=== PATIENT | male | born 1980 | race Two or more races ===

== ENCOUNTER 2025-06-30 15:22 | Emergency (ER) | payer OTHER ==
[~2025-06-30] VITALS: Ht 180.3 cm; Wt 204.1 kg
[2025-06-30] MEDS ORDERED: METFORMIN HCL1000 M2 PO (16:13)
[2025-06-30] MEDS ORDERED: CARVEDILOL ER40 MG PO (16:13)
[2025-06-30] MEDS ORDERED: LOSARTAN POTAS100 MG PO (16:14)
[2025-06-30] MEDS ORDERED: KETOROLAC TROMETHAMINE 60 MG VIAL IM ONE (17:15)
[2025-06-30 18:31] LABS: ALT/SGPT 39.0 U/L (12-78); AST/SGOT 58.0 U/L (15-37); BILIRUBIN TOTAL 2.15 mg/dL (0.3-1.2); BUN CREA RATIO 9.0 (7.0-25.0); CREATININE SERUM 1.04 mg/dL (0.70-1.30); GFR 77.23; GLOBULINA 4.4 G/DL (2.4-3.5); OSMOLALITY SERUM 290.0 MOSM/KG (275-295)
[2025-06-30 18:40] LABS: GLUCOSE FASTING 318.0 mg/dL (65-100)
[2025-06-30 18:59] LABS: BASO % 0.7 % (0.1-1.2); EOS # 0.17 (0.04-0.54); EOS % 3.9 % (0.7-7.0); LYMPH # 1.20 (1.18-3.74); LYMPH % 27.6 % (19.3-53.1); MEAN PLATELET VOLUME 9.80 fl (9.4-12.4); MONO # 0.47 (0.24-0.82); MONO % 10.8 % (4.7-12.5); NEUT # 2.46 (1.56-6.13); NEUT % 56.8 % (34.0-71.1); RED CELL DISTRIBUTION WIDTH 12.9 % (11.6-14.4)
[2025-06-30] MEDS ORDERED: INSULIN REGULAR, HUMAN 1,000 UNIT/10 ML UNITS SUBCUTANEO ONE (20:30)
== END 2025-06-30 22:50 | disposition home or self-care (01) ==
LOC: ER 16:06
PROVIDERS: General Practice
DX: M54.89 Other dorsalgia (principal); M25.561 Pain in right knee; M62.830 Muscle spasm of back; E11.9 Type 2 diabetes mellitus without complications; Z79.84 Long term (current) use of oral hypoglycemic drugs; I10 Essential (primary) hypertension

== ENCOUNTER 2025-07-02 15:54 | Inpatient (IN) | payer OTHER ==
[~2025-07-02] VITALS: Ht 180.3 cm; Wt 208.7 kg
[~2025-07-02 15:54] MED LIST: CARVEDILOL ER40 MG PO; LOSARTAN POTAS100 MG PO; METFORMIN HCL1000 M2 PO
[2025-07-02] MEDS ORDERED: LEVALBUTEROL HCL 1.25 MG/3 ML SOLUTION IH STA (17:32)
[2025-07-02 18:27] LABS: BASO % 0.4 % (0.1-1.2); EOS # 0.15 (0.04-0.54); EOS % 2.9 % (0.7-7.0); LYMPH # 1.17 (1.18-3.74); LYMPH % 22.4 % (19.3-53.1); MEAN PLATELET VOLUME 9.80 fl (9.4-12.4); MONO # 0.57 (0.24-0.82); MONO % 10.9 % (4.7-12.5); NEUT # 3.30 (1.56-6.13); NEUT % 63.2 % (34.0-71.1); RED CELL DISTRIBUTION WIDTH 12.7 % (11.6-14.4)
[2025-07-02 18:53] LABS: ALT/SGPT 37.0 U/L (12-78); AST/SGOT 44.0 U/L (15-37); BILIRUBIN TOTAL 2.84 mg/dL (0.3-1.2); BUN CREA RATIO 12.0 (7.0-25.0); CREATININE SERUM 0.92 mg/dL (0.70-1.30); GFR 88.97; GLOBULINA 4.8 G/DL (2.4-3.5); OSMOLALITY SERUM 286.0 MOSM/KG (275-295)
[2025-07-02 18:58] LABS: GLUCOSE FASTING 288.0 mg/dL (65-100)
[2025-07-02 19:33] LABS: URINE APPEARANCE Clear; URINE BILIRRUBIN Negative (NEGATIVE); URINE BLOOD Small; URINE COLOR Yellow; URINE KETONE Negative (NEGATIVE); URINE LEUKOCYTE Negative; URINE NITRATE Negative; URINE PROTEIN Negative (NEGATIVE); URINE UROBILINOGEN 1.0 E.U./dl
[2025-07-02 19:36] LABS: URINE BACTERIA 88.7 uL (0.0-1933); URINE EPITHELIAL CELLS 12.9 uL (0.0-38.8); URINE RBC 41.0 uL (0.0-20.8); URINE WBC 4.1 uL (0.0-23.2)
[2025-07-02 19:49] LABS: ABG PH 7.415 (7.35-7.45); ABG PO2 174.0 mmHg (80-100); BICARBONATE 26.5 mmol/l (23-25)
[2025-07-02 19:50] LABS: o2 52 %
[2025-07-02] MEDS ORDERED: NITROGLYCERIN IN 5 % DEXTROSE 50 MG/250 ML BOTTLE IV STA (19:55)
[2025-07-02 19:58] LABS: COVID-19 AG NEGATIVE (NEGATIVE)
[2025-07-02] MEDS ORDERED: LEVALBUTEROL HCL 1.25 MG/3 ML SOLUTION IH SCH (20:00)
[2025-07-02] MEDS ORDERED: BUDESONIDE 0.5 MG/2 ML AMPUL.NEB IH ONE (20:00)
[2025-07-02 20:27] LABS: URINE CAST 0.14 uL (0.0-1.40); URINE GLUCOSE 500 MG/DL (NEGATIVE)
[2025-07-02] MEDS ORDERED: INSULIN LISPRO 1,000 UNIT/10 ML UNITS SUBCUTANEO PRN (21:00)
[2025-07-02] MEDS ORDERED: DEXTROSE 50 % IN WATER 0.5 G/ML DISP.SYRIN IV PRN (21:00)
[2025-07-02] MEDS ORDERED: ENOXAPARIN SODIUM 100 MG/ML SYRINGE SUBCUTANEO SCH (21:00)
[2025-07-02] MEDS ORDERED: NITROGLYCERIN IN 5 % DEXTROSE 250 ML IV SCH (21:00)
[2025-07-02] MEDS ORDERED: LEVALBUTEROL HCL 0.63 MG/3 ML SOLUTION IH SCH (21:02)
[2025-07-02] MEDS ORDERED: PANTOPRAZOLE SODIUM 40 MG in 0.9 % SODIUM CHLORIDE 8 ML IV PUSH SCH (21:18)
[2025-07-02 22:28] VITALS: BP 135/74; O2SAT 100
[2025-07-02 23:46] VITALS: BP 112/70; O2SAT 95
[2025-07-03] VITALS (9 sets, daily range): BP systolic 94–126; BP diastolic 55–78; O2SAT 90–95
[2025-07-03] MEDS ORDERED: NITROGLYCERIN IN 5 % DEXTROSE 250 ML IV SCH (08:30)
[2025-07-03] MEDS ORDERED: METOPROLOL TARTRATE 5MG/5ML AMPUL IV STA (08:53)
[2025-07-03] MEDS ORDERED: ACETAMINOPHEN 500 MG GEL..CAP PO PRN (09:00)
[2025-07-03] MEDS ORDERED: METOPROLOL TARTRATE 5MG/5ML AMPUL IV PRN (09:00)
[2025-07-03] MEDS ORDERED: CARVEDILOL 25 MG TABLET PO SCH (09:00)
[2025-07-04] VITALS (10 sets, daily range): BP systolic 94–146; BP diastolic 57–88; O2SAT 89–96
[2025-07-04] MEDS ORDERED: METHYLPREDNISOLONE SOD SUCC 40 MG VIAL IV SCH (09:50)
[2025-07-04 10:29] LABS: ABG PH 7.353 (7.35-7.45); ABG PO2 132.9 mmHg (80-100); BICARBONATE 28.7 mmol/l (23-25); o2 50 %
[2025-07-04] MEDS ORDERED: RIVAROXABAN 20 MG TABLET PO NR (13:20)
[2025-07-05] VITALS (10 sets, daily range): BP systolic 117–143; BP diastolic 69–87; O2SAT 90–96
[2025-07-05] MEDS ORDERED: RIVAROXABAN 20 MG TABLET PO SCH (09:00)
[2025-07-05] MEDS ORDERED: INSULIN GLARGINE,HUM.REC.ANLOG 1,000 UNITS/10 ML UNITS SUBCUTANEO STA (09:36)
[2025-07-06] VITALS (9 sets, daily range): BP systolic 134–151; BP diastolic 77–80; O2SAT 90–97
[2025-07-06] MEDS ORDERED: INSULIN GLARGINE,HUM.REC.ANLOG 1,000 UNITS/10 ML UNITS SUBCUTANEO SCH (09:00)
[2025-07-06 14:09] LABS: ABG PH 7.395 (7.35-7.45); ABG PO2 72.6 mmHg (80-100)
[2025-07-06 14:10] LABS: BICARBONATE 29.7 mmol/l (23-25); o2 21 %
[2025-07-06] MEDS ORDERED: INSULIN GLARGINE,HUM.REC.ANLOG 1,000 UNITS/10 ML UNITS SUBCUTANEO STA (22:47)
[2025-07-07 03:10] VITALS: BP 155/91; O2SAT 95
[2025-07-07 05:32] VITALS: O2SAT 92
[2025-07-07] MEDS ORDERED: INSULIN LISPRO 1,000 UNIT/10 ML UNITS SUBCUTANEO SCH (08:00)
[2025-07-07] MEDS ORDERED: INSULIN GLARGINE,HUM.REC.ANLOG 1,000 UNITS/10 ML UNITS SUBCUTANEO SCH ×2 (09:00→21:00)
[2025-07-07 09:29] VITALS: O2SAT 93
[2025-07-07 10:01] VITALS: BP 164/103; O2SAT 97
[2025-07-07 12:00] VITALS: BP 170/80
== END 2025-07-07 13:54 | disposition home or self-care (01) | DRG 189 ==
LOC: ER 15:54 → MEDJ 21:55
PROVIDERS: Emergency Medicine; General Practice; Internal Medicine; ADMIT Internal Medicine; ATTEND Internal Medicine
PROC: B246ZZZ Ultrasonography of Right and Left Heart (ICD-10-PCS; 2025-07-02)
PROC: 3E0F7GC Introduction of Other Therapeutic Substance into Respiratory Tract, Via Natural or Artificial Opening (ICD-10-PCS; principal; 2025-07-03)
PROC: 4A12X4Z Monitoring of Cardiac Electrical Activity, External Approach (ICD-10-PCS; 2025-07-03)
DX: J80 Acute respiratory distress syndrome (principal); J44.1 Chronic obstructive pulmonary disease with (acute) exacerbation; I48.20 Chronic atrial fibrillation, unspecified; U07.0 Vaping-related disorder; E11.65 Type 2 diabetes mellitus with hyperglycemia; I11.9 Hypertensive heart disease without heart failure; I27.20 Pulmonary hypertension, unspecified; E66.01 Morbid (severe) obesity due to excess calories; G47.33 Obstructive sleep apnea (adult) (pediatric); Z79.84 Long term (current) use of oral hypoglycemic drugs; Z79.4 Long term (current) use of insulin